=== PATIENT | female | born 1960 | race Caucasian/White ===

== ENCOUNTER 2020-04-18 19:51 | Emergency (ER) | payer OTHER ==
[~2020-04-18] VITALS: Ht 160 cm; Wt 72.6 kg
== END 2020-04-19 01:09 | disposition home or self-care (01) ==
LOC: ER 19:51
DX: K59.09 Other constipation (principal); R10.31 Right lower quadrant pain; R10.32 Left lower quadrant pain; Z03.818 Encounter for observation for suspected exposure to other biological agents ruled out